=== PATIENT | female | born 1955 | race Caucasian/White ===

== ENCOUNTER 2019-03-08 06:29 | Day surgery (SDC) | payer MEDICARE, BC ==
[~2019-03-08] VITALS: Ht 152.4 cm; Wt 117.8 kg
[~2019-03-08 06:29] MED LIST: CYAN500 PO; MOME.1TO TOP; VITAMIN D32000 UNIT PO; Zocor20 MG PO
--- NOTE | 2019-03-08 06:56 | NUR ---
History, Chart, Medications and Allergies reviewed before start of procedure. Patient confirms NPO status and agrees with scheduled surgery. Patient States Post-Procedure ride home has been arranged with .
--- NOTE | 2019-03-08 06:58 | NUR ---
Reports taking all of colon prep with clear results.
--- NOTE | 2019-03-08 08:27 | NUR ---
03/08/19 0826 Ria Rosales [facility] RO[facility] LOCATION.
--- NOTE | 2019-03-08 09:32 | NUR ---
Discharge instructions reviewed with patient. Patient verbalizes understanding. Copy given to patient to take home. VSS. GAIT STEADY. TO DRIVE HOME.
== END 2019-03-08 09:40 | disposition home or self-care (01) ==
LOC: ORSCMMR 06:29 → ORD 08:00 → ORSCMMR 09:40
PROVIDERS: Internal Medicine Gastroenterology
PROC: 0DBL8ZX Excision of Transverse Colon, Via Natural or Artificial Opening Endoscopic, Diagnostic (ICD-10-PCS; principal; 2019-03-08 08:00)
DX: Z12.11 Encounter for screening for malignant neoplasm of colon (principal); D12.3 Benign neoplasm of transverse colon; K63.5 Polyp of colon; K57.30 Diverticulosis of large intestine without perforation or abscess without bleeding; K64.8 Other hemorrhoids; G47.33 Obstructive sleep apnea (adult) (pediatric); E78.5 Hyperlipidemia, unspecified; E66.01 Morbid (severe) obesity due to excess calories; Z68.43 Body mass index [BMI] 50.0-59.9, adult
CPT/HCPCS: 88305; J2704; J7120

== ENCOUNTER → 2022-06-28 | Outpatient (CLI) | payer MEDICARE, BC ==
[~2022-06-28] MED LIST changes: +ELIQUIS2.5 MG; +TAGRISSO40 MG
[2022-06-28 07:24] LABS: Source, Urine Clean Catch
[2022-06-28 11:10] LABS: Appearance, Urine Turbid (Clear); Bilirubin, Urine Neg (Neg); Blood, Urine Neg (Neg); Color, Urine Yellow (P-Yellow); Glucose Qualitative, Urine Neg (Neg); Ketones, Urine Neg (Neg); Leukocyte Esterase, Urine 2+ (Neg); Nitrite, Urine Neg (Neg); Protein, Urine Neg (Neg); Specific Gravity, Urine 1.025 (1.003-1.022); Urobilinogen, Urine NORM (Normal)
[2022-06-28 11:19] LABS: Amorphous Heavy (0-Heavy); Bacteria Few /hpf; Red Blood Cells, Urine 0-2 /hpf (0-2); Squamous Epithelial Cells Not Seen /hpf (Few)
== END | disposition home or self-care (01) ==
LOC: LAB 07:21 → LAB SHORT 07:21 → LAB FUT 06-24 09:30 → EDSTATUS 06-24 09:30
PROVIDERS: Internal Medicine
DX: R82.90 Unspecified abnormal findings in urine (principal)
CPT/HCPCS: 81001; 87086

== ENCOUNTER 2024-09-20 02:34 | Day surgery (SDC) | payer MEDICARE, BC ==
[2024-09-20] MEDS ORDERED: Lidocaine HCl 4% Cream 5 GM ONE (08:24)
== END 2024-09-20 23:00 | disposition home or self-care (01) ==
LOC: WOUND 02:34
DX: E11.622 Type 2 diabetes mellitus with other skin ulcer (principal); L97.312 Non-pressure chronic ulcer of right ankle with fat layer exposed; I87.323 Chronic venous hypertension (idiopathic) with inflammation of bilateral lower extremity; E11.22 Type 2 diabetes mellitus with diabetic chronic kidney disease; N18.31 Chronic kidney disease, stage 3a
CPT/HCPCS: A6196; A6213; A9270; G0463

== ENCOUNTER 2024-09-24 04:31 | Day surgery (SDC) | payer MEDICARE, BC ==
[2024-09-24] MEDS ORDERED: Lidocaine HCl 4% Cream 5 GM ONE (14:59)
== END 2024-09-24 23:00 | disposition home or self-care (01) ==
LOC: WOUND 04:31
DX: E11.622 Type 2 diabetes mellitus with other skin ulcer (principal); L97.312 Non-pressure chronic ulcer of right ankle with fat layer exposed; I87.323 Chronic venous hypertension (idiopathic) with inflammation of bilateral lower extremity; E11.22 Type 2 diabetes mellitus with diabetic chronic kidney disease; N18.31 Chronic kidney disease, stage 3a; R60.0 Localized edema; Z86.718 Personal history of other venous thrombosis and embolism; Z79.899 Other long term (current) drug therapy
CPT/HCPCS: 36415; 80048; 83735; 83880; A6196; A6213; A9270

== ENCOUNTER → 2024-10-01 | Day surgery (SDC) | payer MEDICARE, BC ==
[~2024-10-01] MED LIST changes: +Lidocaine HCl 4% Cream 5 GM ONE
== END ==
LOC: WOUND 03:35
DX: E11.622 Type 2 diabetes mellitus with other skin ulcer (principal); I87.323 Chronic venous hypertension (idiopathic) with inflammation of bilateral lower extremity; L97.312 Non-pressure chronic ulcer of right ankle with fat layer exposed; E11.51 Type 2 diabetes mellitus with diabetic peripheral angiopathy without gangrene; E11.22 Type 2 diabetes mellitus with diabetic chronic kidney disease; N18.31 Chronic kidney disease, stage 3a; Z86.718 Personal history of other venous thrombosis and embolism
CPT/HCPCS: A6196; A6213; A9270

== ENCOUNTER 2024-10-08 02:25 | Day surgery (SDC) | payer MEDICARE, BC ==
[~2024-10-08 02:25] MED LIST changes: -Lidocaine HCl 4% Cream 5 GM ONE
[2024-10-08] MEDS ORDERED: Lidocaine HCl 4% Cream 5 GM ONE (09:47)
== END 2024-10-08 23:38 | disposition home or self-care (01) ==
LOC: WOUND 02:25
DX: I87.331 Chronic venous hypertension (idiopathic) with ulcer and inflammation of right lower extremity (principal); L97.312 Non-pressure chronic ulcer of right ankle with fat layer exposed; I87.322 Chronic venous hypertension (idiopathic) with inflammation of left lower extremity; E11.51 Type 2 diabetes mellitus with diabetic peripheral angiopathy without gangrene; E11.22 Type 2 diabetes mellitus with diabetic chronic kidney disease; N18.31 Chronic kidney disease, stage 3a; Z86.718 Personal history of other venous thrombosis and embolism
CPT/HCPCS: A6196; A6213; A9270

== ENCOUNTER 2024-10-15 02:09 | Day surgery (SDC) | payer MEDICARE, BC ==
[2024-10-15] MEDS ORDERED: Lidocaine HCl 4% Cream 5 GM ONE (09:27)
[2024-10-15] MEDS ORDERED: Triamcinolone Acet 0.1% Cream 15 gm ONE (09:56)
== END 2024-10-15 23:43 | disposition home or self-care (01) ==
LOC: WOUND 02:09
DX: I87.331 Chronic venous hypertension (idiopathic) with ulcer and inflammation of right lower extremity (principal); L97.312 Non-pressure chronic ulcer of right ankle with fat layer exposed; I87.322 Chronic venous hypertension (idiopathic) with inflammation of left lower extremity; E11.51 Type 2 diabetes mellitus with diabetic peripheral angiopathy without gangrene; E11.22 Type 2 diabetes mellitus with diabetic chronic kidney disease; N18.31 Chronic kidney disease, stage 3a; Z85.118 Personal history of other malignant neoplasm of bronchus and lung; Z86.718 Personal history of other venous thrombosis and embolism
CPT/HCPCS: A6196; A6213; A9270

== ENCOUNTER 2024-10-22 00:55 | Day surgery (SDC) | payer MEDICARE, BC ==
[2024-10-22] MEDS ORDERED: Lidocaine HCl 4% Cream 5 GM ONE (09:50)
== END 2024-10-22 23:00 | disposition home or self-care (01) ==
LOC: WOUND 00:55
DX: I87.331 Chronic venous hypertension (idiopathic) with ulcer and inflammation of right lower extremity (principal); L97.312 Non-pressure chronic ulcer of right ankle with fat layer exposed; I87.322 Chronic venous hypertension (idiopathic) with inflammation of left lower extremity; E11.51 Type 2 diabetes mellitus with diabetic peripheral angiopathy without gangrene; E11.22 Type 2 diabetes mellitus with diabetic chronic kidney disease; N18.31 Chronic kidney disease, stage 3a; G47.30 Sleep apnea, unspecified; Z86.718 Personal history of other venous thrombosis and embolism
CPT/HCPCS: A6196; A6213; A9270

== ENCOUNTER 2024-11-05 03:27 | Day surgery (SDC) | payer MEDICARE, BC ==
[2024-11-05] MEDS ORDERED: Lidocaine HCl 4% Cream 5 GM ONE (09:44)
[2024-11-05] MEDS ORDERED: Triamcinolone Acet 0.1% Cream 15 gm ONE (10:30)
== END 2024-11-05 23:04 | disposition home or self-care (01) ==
LOC: WOUND 03:27
DX: I87.331 Chronic venous hypertension (idiopathic) with ulcer and inflammation of right lower extremity (principal); L97.312 Non-pressure chronic ulcer of right ankle with fat layer exposed; I87.322 Chronic venous hypertension (idiopathic) with inflammation of left lower extremity; E11.51 Type 2 diabetes mellitus with diabetic peripheral angiopathy without gangrene; E11.22 Type 2 diabetes mellitus with diabetic chronic kidney disease; N18.31 Chronic kidney disease, stage 3a; G47.30 Sleep apnea, unspecified; Z85.118 Personal history of other malignant neoplasm of bronchus and lung; Z86.718 Personal history of other venous thrombosis and embolism
CPT/HCPCS: 93970; A6213; A9270

== ENCOUNTER 2024-12-24 00:41 | Day surgery (SDC) | payer MEDICARE, BC ==
[2024-12-24] MEDS ORDERED: Lidocaine HCl 4% Cream 5 GM ONE (09:55)
== END 2024-12-24 23:16 | disposition home or self-care (01) ==
LOC: WOUND 00:41
DX: I87.331 Chronic venous hypertension (idiopathic) with ulcer and inflammation of right lower extremity (principal); L97.312 Non-pressure chronic ulcer of right ankle with fat layer exposed; I87.322 Chronic venous hypertension (idiopathic) with inflammation of left lower extremity; E11.51 Type 2 diabetes mellitus with diabetic peripheral angiopathy without gangrene; E11.22 Type 2 diabetes mellitus with diabetic chronic kidney disease; N18.31 Chronic kidney disease, stage 3a; Z86.718 Personal history of other venous thrombosis and embolism
CPT/HCPCS: A9270; G0463

== ENCOUNTER 2025-01-01 03:30 | Day surgery (SDC) | payer MEDICARE, BC | END 2025-01-01 23:00 | disposition home or self-care (01) | LOC: WOUND 03:30 | DX: I87.331 Chronic venous hypertension (idiopathic) with ulcer and inflammation of right lower extremity (principal); L97.312 Non-pressure chronic ulcer of right ankle with fat layer exposed; I87.322 Chronic venous hypertension (idiopathic) with inflammation of left lower extremity; E11.51 Type 2 diabetes mellitus with diabetic peripheral angiopathy without gangrene; E11.22 Type 2 diabetes mellitus with diabetic chronic kidney disease; N18.31 Chronic kidney disease, stage 3a; Z86.718 Personal history of other venous thrombosis and embolism | CPT/HCPCS: A9270; G0463 ==

== ENCOUNTER 2025-03-14 07:58 | Day surgery (SDC) | payer MEDICARE, BC ==
[~2025-03-14] VITALS: Ht 152.4 cm; Wt 123.8 kg
[~2025-03-14 07:58] MED LIST changes: +ACET500 PO; -ELIQUIS2.5 MG; +ELIQUIS2.5 MG PO; +FERSU300 PO; +FURO20 PO; +POTA10T PO
[2025-03-14 09:30] VITALS: BP 130/88
[2025-03-14] MEDS ORDERED: XARELTO20 MG PO (09:34)
[2025-03-14 10:13] VITALS: BP 124/88
--- NOTE | 2025-03-14 10:28 | NUR ---
Discharge instructions reviewed with patient. Patient verbalizes understanding. Copy given to patient to take home. Patient States Post-Procedure ride home has been arranged. Discharged via wheelchair to private car for ride home.
--- NOTE | 2025-03-14 10:40 | NUR ---
03/14/25 1040 Kobe Prescott MONITOR INTACT WITH CONTINUOUS PULSE OXIMETRY, CONTINUOUS END TITAL CO2, 3-LEAD EKG AND INTERMITTENT BLOOD PRESSURE.O2 VIA POM INTACT THROUGHOUT SEDATION/PROCEDURE.
[2025-03-14 11:18] VITALS: BP 120/63
[2025-03-14 11:31] VITALS: BP 143/79
== END 2025-03-14 11:30 | disposition home or self-care (01) ==
LOC: ORSCMMR 07:58 → ORD 09:30 → ORSCMMR 09:30 → ORD 11:30
PROVIDERS: Internal Medicine Gastroenterology
PROC: 0DBN8ZX Excision of Sigmoid Colon, Via Natural or Artificial Opening Endoscopic, Diagnostic (ICD-10-PCS; principal; 2025-03-14 09:45)
DX: Z12.11 Encounter for screening for malignant neoplasm of colon (principal); Z86.0101 Personal history of adenomatous and serrated colon polyps; K63.5 Polyp of colon; K57.30 Diverticulosis of large intestine without perforation or abscess without bleeding; K64.8 Other hemorrhoids; G47.33 Obstructive sleep apnea (adult) (pediatric); E66.01 Morbid (severe) obesity due to excess calories; Z68.43 Body mass index [BMI] 50.0-59.9, adult; Z79.899 Other long term (current) drug therapy; Z79.01 Long term (current) use of anticoagulants
CPT/HCPCS: 88305; J2704; J7120